=== PATIENT | female | born 1945 | race Caucasian/White ===

== ENCOUNTER 2024-05-24 11:14 | Outpatient (CLI) | payer OTHER, SELFPAY ==
[2024-05-24 12:17] LABS: Anion Gap 4 mmol/L (4-12); Blood Urea Nitrogen 16 mg/dL (7-17); Calcium 9.5 mg/dL (8.4-10.2); Carbon Dioxide 27 mmol/L (22-30); Chloride 103 mmol/L (98-107); Estimated Glomerular Filt Rate > 60; Glucose 94 mg/dL (65-110); Potassium 4.3 mmol/L (3.4-5.0); Sodium 134 mmol/L (137-145)
== END 2024-05-24 11:15 | disposition home or self-care (01) ==
PROVIDERS: Anesthesiology; PCP Family Medicine; Visit Provider Urology
DX: Z01.818 Encounter for other preprocedural examination (principal); E11.9 Type 2 diabetes mellitus without complications; N63.42 Unspecified lump in left breast, subareolar
CPT/HCPCS: 36415; 80048; 87086